=== PATIENT | female | born 1985 | race American Indian/Alaskan Native ===

== ENCOUNTER 2016-11-14 06:43 | Day surgery (SDC) | payer MEDICAID ==
[~2016-11-14 06:43] MED LIST: ANCEF/STERILE WATER 2 GM/20 ML IV NR
[2016-11-14] MEDS ORDERED: DIPRIVAN 10 MG/ML IV ONE (07:24)
[2016-11-14] MEDS ORDERED: DILAUDID ONE (07:24)
[2016-11-14] MEDS ORDERED: XYLOCAINE MPF 2% ONE ×2 (07:24→08:34)
[2016-11-14] MEDS ORDERED: NACL BACTERIOSTATIC INFILTRATI ONE (07:30)
--- NOTE | 2016-11-14 07:38 | Anesthesia Day of Surgery ---
Anesthesia Day of Surgery - Day of Surgery Patient Examined: Yes Patient H&P Reviewed: Yes Patient is NPO: Yes
--- NOTE | 2016-11-14 07:40 | Anesthesia Consultation ---
Anesthesia Consult and Med Hx Date of service: 11/14/16 - Airway Anesthetic Teeth Evaluation: Good ROM Head & Neck: Adequate Mental/Hyoid Distance: Adequate Mallampati Class: Class II Intubation Access Assessment: Probably Good - Pulmonary Exam CTA: Yes - Cardiac Exam Cardiac Exam: RRR - Pre-Operative Health Status ASA Pre-Surgery Classification: ASA2 Proposed Anesthetic Plan: General - Pulmonary Hx Smoking: Yes (4 PER DAY X 10 YRS) Hx Asthma: No Hx Sleep Apnea: No (VINOD PRE SCREEN HIGH RISK) - Cardiovascular System Hx Hypertension: No (on nifedipine during ) - Central Nervous System Hx Psychiatric Problems: No - Gastrointestinal Hx Gastroesophageal Reflux Disease: No - Endocrine Hx Renal Disease: No Hx Liver Disease: No Hx Non-Insulin Dependent Diabetes: No - Hematic Hx Sickle Cell Disease: No - Other Systems Hx Substance Use: Yes (MARIJUANA once on August 2016) Hx Cancer: No Hx Obesity: Yes - Additional Comments Anesthesia Medical History Comments: NAC
[2016-11-14 07:59] LABS: Hematocrit 41.2 % (30.3-42.9); Hemoglobin 13.8 gm/dl (10.1-14.3)
[2016-11-14] MEDS ORDERED: VERSED IV NR (08:15)
[2016-11-14] MEDS ORDERED: LACTATED RINGERS 1,000 ML IV SCH (08:15)
[2016-11-14] MEDS ORDERED: PEPCID IV NR (08:15)
[2016-11-14] MEDS ORDERED: NACL 0.9% IR ONE (08:34)
[2016-11-14] MEDS ORDERED: MARCAINE-EPI 0.5%-1:200,000 INFILTRATI ONE ×2 (08:34)
[2016-11-14] MEDS ORDERED: ZOFRAN ONE (08:57)
[2016-11-14] MEDS: DILAUDID IV PRN ×4 (09:50→10:30)
--- NOTE | 2016-11-14 09:50 | Post Anesthesia Evaluation ---
- Post Anesthesia Evaluation Patient Participated: Yes Airway Patent: Yes Stable Respiratory Function: Yes Nausea/Vomiting: No Temp > 96.8F: Yes Pain Manageable: Yes Adequeate Hydration: Yes Anesthesia Complications: No
[2016-11-14 10:49] VITALS: BP 133/69
--- NOTE | 2016-11-14 11:04 | Operative Report ---
SERVICE: Plastic surgery. PREOPERATIVE DIAGNOSIS: Cicatrix of vagina. POSTOPERATIVE DIAGNOSIS: Cicatrix of vagina. PROCEDURE: Complex scar revision of the vagina, 5 cm. SURGEON: Jagdish Muro MD DESCRIPTION OF PROCEDURE: The patient was brought to the operating room and placed on the table in supine position. Following administration of general anesthesia, the patient was placed into a high lithotomy position. The vagina was prepped with a Betadine solution and draped in the usual sterile manner. Following preoperative markings, an elliptical excision of the scar was performed and sent to pathology as specimen. Hemostasis controlled using the electrocautery. Closure performed using a running 3-0 chromic suture followed by application of Neosporin. The patient tolerated the procedure well and returned to recovery room in stable condition. JOB# [id number] FTW/NTS
== END 2016-11-14 11:44 | disposition home or self-care (01) ==
LOC: OR 06:43
PROVIDERS: ATTEND Plastic Surgery
DX: N89.8 Other specified noninflammatory disorders of vagina (principal); N76.0 Acute vaginitis; L57.0 Actinic keratosis; F12.90 Cannabis use, unspecified, uncomplicated; F17.210 Nicotine dependence, cigarettes, uncomplicated; E66.9 Obesity, unspecified; Z68.41 Body mass index [BMI] 40.0-44.9, adult; Z98.890 Other specified postprocedural states
CPT/HCPCS: 13132; 36415; 81025; 85014; 85018; 88305; J0690; J1170; J2250; J2405; J2704; J7120

== ENCOUNTER 2020-06-21 01:07 | Emergency (ER) | payer MEDICAID ==
[2020-06-21 02:04] VITALS: BP 125/75
[2020-06-21 02:29] LABS: Bacteria,Urine 1+ /HPF (Negative); Bilirubin,Urine NEG (Negative); Blood,Urine LG (Negative); Color,Urine Yellow (Yellow); Mucus,Urine 3+ /HPF; Urobilinogen,Urine < 2.0 mg/dL (<2.0)
[2020-06-21 03:17] LABS: Basophils # (Auto) 0.1 K/mm3 (0.0-0.1); Basophils % (Auto) 0.6 % (0.0-1.8); Eosinophils # (Auto) 0.1 K/mm3 (0.0-0.4); Eosinophils % (Auto) 0.4 % (0.0-4.3); Hematocrit 37.8 % (30.3-42.9); Hemoglobin 12.6 gm/dl (10.1-14.3); Lymphocytes % (Auto) 18.4 % (13.4-35.0); Mean Corpuscular HGB Conc 33 % (30-34); Mean Corpuscular Volume 82 fl (79-97); Monocytes # (Auto) 1.2 K/mm3 (0.0-0.8); Monocytes % (Auto) 7.6 % (0.0-7.3); Platelet Count 219 K/mm3 (140-440)
--- NOTE | 2020-06-21 04:55 | Ultrasound Report ---
EXAMINATION: Obstetrical Ultrasound INDICATION: Vaginal bleeding in early COMPARISON: None FINDINGS: There is a twin living intrauterine . Twin A: [place]-rump length = 0.7 cm = 6 weeks, 4 day(s). heart rate equals 120 bpm Twin B: [place]-rump length = 0.6 cm = 6 weeks, 3 day(s). heart rate equals 118 bpm There are small right adnexal cysts present, the largest of which measures 1.8 cm. The left adnexal region is not well-visualized. No free pelvic fluid is visualized. IMPRESSION: 1. Twin intrauterine with details as above. Signer Name: Maria De Jesus Arita MD Signed: 06/21/2020 4:51 AM Workstation Name: [id number]
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
[2020-06-21] MEDS ORDERED: ACETAMINOPHEN 500 MG TAB PO ONE (06:20)
--- NOTE | 2020-06-22 06:59 | Ultrasound Report ---
Please see obstetrical ultrasound report performed the same day. Signer Name: Maria De Jesus Arita MD Signed: 06/22/2020 6:55 AM Workstation Name: [id number]
--- NOTE | 2020-06-22 07:00 | Ultrasound Report ---
Please see obstetrical ultrasound report performed the same day. Signer Name: Maria De Jesus Arita MD Signed: 06/22/2020 6:55 AM Workstation Name: [id number]
== END 2020-06-21 06:35 | disposition home or self-care (01) ==
LOC: ED 01:07
DX: O20.9 Hemorrhage in early pregnancy, unspecified (principal); O9A.22 Injury, poisoning and certain other consequences of external causes complicating childbirth; S69.82XA Other specified injuries of left wrist, hand and finger(s), initial encounter; O16.1 Unspecified maternal hypertension, first trimester; Z3A.01 Less than 8 weeks gestation of pregnancy; X58.XXXA Exposure to other specified factors, initial encounter; Y93.89 Activity, other specified; Y92.89 Other specified places as the place of occurrence of the external cause; Y99.8 Other external cause status
CPT/HCPCS: 36415; 76801; 76802; 76817; 81001; 84702; 85025; 86900; 86901

== ENCOUNTER 2020-08-12 10:56 | Emergency (ER) | payer MEDICAID ==
[2020-08-12 12:26] LABS: Basophils % (Auto) 0.4 % (0.0-1.8); Eosinophils # (Auto) 0.1 K/mm3 (0.0-0.4); Eosinophils % (Auto) 0.8 % (0.0-4.3); Hematocrit 36.4 % (30.3-42.9); Hemoglobin 12.1 gm/dl (10.1-14.3); Lymphocytes # (Auto) 2.1 K/mm3 (1.2-5.4); Lymphocytes % (Auto) 17.2 % (13.4-35.0); Mean Corpuscular HGB Conc 33 % (30-34); Mean Corpuscular Volume 85 fl (79-97); Monocytes # (Auto) 1.2 K/mm3 (0.0-0.8); Monocytes % (Auto) 9.5 % (0.0-7.3); Platelet Count 180 K/mm3 (140-440); Red Blood Count 4.27 M/mm3 (3.65-5.03); Red Cell Distribution Width 16.6 % (13.2-15.2)
[2020-08-12] MEDS ORDERED: PROMETHAZINE 25 MG TAB PO ONE (14:19)
[2020-08-12] MEDS ORDERED: ACETAMINOPHEN 325 MG TAB PO ONE (14:19)
--- NOTE | 2020-08-12 14:38 | Emergency Department Report ---
ED General Adult HPI - General Chief complaint: Abdominal Pain Stated complaint: 15 WKS /BLEEDING Time Seen by Provider: 08/12/20 14:09 Source: patient Mode of arrival: Ambulatory Limitations: No Limitations - History of Present Illness Initial comments: Patient is a 35-year-old female presents emergency room with complaints of vaginal spotting that began this morning. She denies any heavy bleeding or passing clots. She states that she has been having left lower back pain for the last couple of days. She denies any abdominal pain, vaginal discharge, vaginal irritation, vomiting, diarrhea, fever. She states that she is currently 15 week s with twins. She states that she went to her OB doctor today Dr. Padgett at [facility] and states that she had blood present in her urine and they wanted her to be evaluated in the emergency department. She states that they were concerned that she might have a kidney stone per patient. She denies ever having this in the past. /P:3/A:12. no PMHx. no allergies to meds. - Related Data Home Medications Medication Instructions Recorded Confirmed Last Taken No Known Home Medications [No 03/26/14 11/07/16 Unknown Reported Home Medications] Allergies Allergy/AdvReac Type Severity Reaction Status Date / Time No Known Allergies Allergy Verified 11/07/16 14:03 ED Review of Systems ROS: Stated complaint: 15 WKS /BLEEDING Other details as noted in HPI Comment: All other systems reviewed and negative ED Past Medical Hx - Past Medical History Hx Hypertension: Yes (on nifedipine during ) Hx Liver Disease: No Hx Renal Disease: No Hx Sickle Cell Disease: No Hx Asthma: No - Surgical History Additional Surgical History: c section, vaginal cerclage - Social History Smoking Status: Never Smoker - Medications Home Medications: Home Medications Medication Instructions Recorded Confirmed Last Taken Type No Known Home Medications [No 03/26/14 11/07/16 Unknown History Reported Home Medications] ED Physical Exam - General Limitations: No Limitations General appearance: alert, in no apparent distress - Head Head exam: Present: atraumatic, normocephalic - Eye Eye exam: Present: normal appearance - ENT ENT exam: Present: mucous membranes moist - Respiratory Respiratory exam: Present: normal lung sounds bilaterally. Absent: respiratory distress, wheezes, rales, rhonchi, stridor, chest wall tenderness, accessory muscle use, decreased breath sounds, prolonged expiratory - Cardiovascular Cardiovascular Exam: Present: regular rate, normal rhythm, normal heart sounds. Absent: systolic murmur, diastolic murmur, rubs, gallop - Back Exam Back exam: Present: normal inspection, full ROM, CVA tenderness (L) (mild), paraspinal tenderness (mild left lumbar paraspinal muscular ttp, no midline C- spine, T-spine or L-spine ttp, no step offs, no deformities). Absent: CVA tenderness (R), vertebral tenderness - Neurological Exam Neurological exam: Present: alert, oriented X3, CN II-XII intact, normal gait. Absent: motor sensory deficit - Psychiatric Psychiatric exam: Present: normal affect, normal mood - Skin Skin exam: Present: warm, dry, intact ED Course Vital Signs 08/12/20 08/12/20 11:20 16:50 Temperature 98.3 F Pulse Rate 95 H 84 Respiratory 20 18 Rate Blood Pressure 125/68 131/72 [Left] O2 Sat by Pulse 98 97 Oximetry ED Medical Decision Making - Lab Data Result diagrams: 08/12/20 11:24 08/12/20 14:32 Lab Results 08/12/20 08/12/20 08/12/20 Range/Units 11:24 11:24 14:32 WBC 12.1 H (4.5-11.0) K/mm3 RBC 4.27 (3.65-5.03) M/mm3 Hgb 12.1 (10.1-14.3) gm/dl Hct 36.4 (30.3-42.9) % MCV 85 (79-97) fl MCH 28 (28-32) pg MCHC 33 (30-34) % RDW 16.6 H (13.2-15.2) % Plt Count 180 (140-440) K/mm3 Lymph % (Auto) 17.2 (13.4-35.0) % [place] % (Auto) 9.5 H (0.0-7.3) % Eos % (Auto) 0.8 (0.0-4.3) % Baso % (Auto) 0.4 (0.0-1.8) % Lymph # (Auto) 2.1 (1.2-5.4) K/mm3 [place]les # (Auto) 1.2 H (0.0-0.8) K/mm3 Eos # (Auto) 0.1 (0.0-0.4) K/mm3 Baso # (Auto) 0.0 (0.0-0.1) K/mm3 Seg Neutrophils % 72.1 H (40.0-70.0) % Seg Neutrophils # 8.8 H (1.8-7.7) K/mm3 Sodium 134 L (137-145) mmol/L Potassium 4.1 (3.6-5.0) mmol/L Chloride 100.8 (98-107) mmol/L Carbon Dioxide 17 L (22-30) mmol/L Anion Gap 20 mmol/L BUN 7 (7-17) mg/dL Creatinine 0.4 L (0.6-1.2) mg/dL Estimated GFR > 60 ml/min BUN/Creatinine Ratio 18 % Glucose 82 (65-100) mg/dL Calcium 9.2 (8.4-10.2) mg/dL Total Bilirubin < 0.20 (0.1-1.2) mg/dL AST 17 (5-40) units/L ALT 11 (7-56) units/L Alkaline Phosphatase 68 (35-129) units/L Total Protein 6.7 (6.3-8.2) g/dL Albumin 3.7 L (3.9-5) g/dL Albumin/Globulin Ratio 1.2 % HCG, Quant [id number] H (0-4) mIU/mL Urine Color (Yellow) Urine Turbidity (Clear) Urine pH (5.0-7.0) Ur Specific [place] (1.003-1.030) Urine Protein (Negative) mg/dL Urine Glucose (UA) (Negative) mg/dL Urine Ketones (Negative) mg/dL Urine Blood (Negative) Urine Nitrite (Negative) Urine Bilirubin (Negative) Urine Urobilinogen (<2.0) mg/dL Ur Leukocyte Esterase (Negative) Urine WBC (Auto) (0.0-6.0) /HPF Urine RBC (Auto) (0.0-6.0) /HPF U Epithel Cells (Auto) (0-13.0) /HPF Urine Bacteria (Auto) (Negative) /HPF Urine Mucus /HPF 10/14/20 Range/Units 14:40 WBC (4.5-11.0) K/mm3 RBC (3.65-5.03) M/mm3 Hgb (10.1-14.3) gm/dl Hct (30.3-42.9) % MCV (79-97) fl MCH (28-32) pg MCHC (30-34) % RDW (13.2-15.2) % Plt Count (140-440) K/mm3 Lymph % (Auto) (13.4-35.0) % [place] % (Auto) (0.0-7.3) % Eos % (Auto) (0.0-4.3) % Baso % (Auto) (0.0-1.8) % Lymph # (Auto) (1.2-5.4) K/mm3 [place] # (Auto) (0.0-0.8) K/mm3 Eos # (Auto) (0.0-0.4) K/mm3 Baso # (Auto) (0.0-0.1) K/mm3 Seg Neutrophils % (40.0-70.0) % Seg Neutrophils # (1.8-7.7) K/mm3 Sodium (137-145) mmol/L Potassium (3.6-5.0) mmol/L Chloride (98-107) mmol/L Carbon Dioxide (22-30) mmol/L Anion Gap mmol/L BUN (7-17) mg/dL Creatinine (0.6-1.2) mg/dL Estimated GFR ml/min BUN/Creatinine Ratio % Glucose (65-100) mg/dL Calcium (8.4-10.2) mg/dL Total Bilirubin (0.1-1.2) mg/dL AST (5-40) units/L ALT (7-56) units/L Alkaline Phosphatase (35-129) units/L Total Protein (6.3-8.2) g/dL Albumin (3.9-5) g/dL Albumin/Globulin Ratio % HCG, Quant (0-4) mIU/mL Urine Color Yellow (Yellow) Urine Turbidity Slightly-cloudy (Clear) Urine pH 6.0 (5.0-7.0) Ur Specific [place] 1.019 (1.003-1.030) Urine Protein <15 mg/dl (Negative) mg/dL Urine Glucose (UA) Neg (Negative) mg/dL Urine Ketones Neg (Negative) mg/dL Urine Blood Neg (Negative) Urine Nitrite Neg (Negative) Urine Bilirubin Neg (Negative) Urine Urobilinogen < 2.0 (<2.0) mg/dL Ur Leukocyte Esterase Neg (Negative) Urine WBC (Auto) 5.0 (0.0-6.0) /HPF Urine RBC (Auto) 4.0 (0.0-6.0) /HPF U Epithel Cells (Auto) 1.0 (0-13.0) /HPF Urine Bacteria (Auto) 2+ (Negative) /HPF Urine Mucus 1+ /HPF - Radiology Data Radiology results: report reviewed ULTRASOUND RENAL INDICATION / CLINICAL INFORMATION: , back pain. COMPARISON: None available. FINDINGS: RIGHT KIDNEY: Length = 14.3 cm. - Echogenicity: Normal. - Cortical Thickness: Normal. - Hydronephrosis: None. - Cyst or mass: 2.1 cm simple renal cyst. - Stones: None seen. LEFT KIDNEY: Length = 12.1 cm. - Echogenicity: Normal. - Cortical Thickness: Normal. - Hydronephrosis: None. - Cyst or mass: No significant abnormality. - Stones: None seen. URINARY BLADDER: No significant abnormality. FREE FLUID: None. ADDITIONAL FINDINGS: None. IMPRESSION: 1. Small, simple, right renal cyst. Signer Name: Autumn Hernández MD Signed: 08/12/2020 3:50 PM Workstation Name: [id number] Transcribed By: RH Dictated By: AUTUMN HERNÁNDEZ III Electronically Authenticated By: AUTUMN HERNÁNDEZ III Signed Date/Time: 08/12/201549 DD/ 154 TD/TT: ULTRASOUND OBSTETRIC INDICATION / CLINICAL INFORMATION: twin , spotting, left flank pain. Clinical Gestational Age (GA): 14.3 weeks.days TECHNIQUE: Transabdominal. COMPARISON: 06/21/2020 FINDINGS: There is a twin gestation intrauterine . Reported findings are for twin "A". Biparietal Diameter = 2.4 cm = 14.1 weeks.days Head Circumference = 9.5 cm = 14.3 weeks.days Abdominal Circumference = 8.0 cm = 14.3 weeks.days Femur Length = 1.7 cm = 15.1 weeks.days Average Ultrasound Age (AUA) = 14.4 weeks.days Heart Rate: 128 beats per minute. Estimated Weight in grams (if calculated): Not calculated. Estimated Weight Growth Percentile (if calculated): Not calculated. Position: breech. Cervix: closed. Length in cm (if measured): 3.0 cm Placenta: anterior and appears free of the os. Amniotic Fluid Volume: Subjectively normal Amniotic Fluid Index (EVERETTE) in cm (if calculated): Not calculated. Maternal Adnexa: No significant abnormality. IMPRESSION: 1. Twin gestation, above reported findings are for twin "A". Sonographic age of 14.4 weeks.days. Breech presentation. 2. Cervical length at the lower limits of normal. Recommend continued follow-up as warranted. Signer Name: Autumn Hernández MD Signed: 08/12/2020 3:59 PM Workstation Name: [id number] Transcribed By: CHRISTY Dictated By: AUTUMN HERNÁNDEZ III Electronically Authenticated By: AUTUMN HERNÁNDEZ III Signed Date/Time: 08/12/201558 DD/ 55 TD/TT: - Medical Decision Making Patient is a 35-year-old female presents emergency room with complaints of vaginal spotting that began this morning. She denies any heavy bleeding or passing clots. She states that she has been having left lower back pain for the last couple of days. She denies any abdominal pain, vaginal discharge, vaginal irritation, vomiting, diarrhea, fever. She states that she is currently 15 weeks with twins. She states that she went to her OB doctor today Dr. Padgett at [facility] and states that she had blood present in her urine and they wanted her to be evaluated in the emergency department. She states that they were concerned that she might have a kidney stone per patient. She denies ever having this in the past. /P:3/A:12. no PMHx. no allergies to meds. Vitals are normal. On exam:mild left lumbar paraspinal muscular ttp, no midline C-spine, T-spine or L-spine ttp, no step offs, no deformities, mild left CVA tenderness, no focal neuro deficits, no abdominal tenderness on exam. Labs are stable. Patient is Rh+. UA is within normal limits. hCG quant is [id number]. renal US: 1. Small, simple, right renal cyst. US OB: 1. Twin gestation, above reported findings are for twin "A". Sonographic age of 14.4 weeks.days. Breech presentation. 2. Cervical length at the lower limits of normal. Recommend continued follow-up as warranted. Patient given Tylenol and Phenergan while in the emergency department her symptoms improved. Discussed all results with patient and answered questions. Discussed the possibility of threatened miscarriage given spotting during , discussed pelvic rest, discussed close OB monitoring. advised pt May take Tylenol as needed for discomfort. Increase your water intake. Follow-up with your PET W[facility]ER within the next 2 days for reexamination. He will need close OB follow-up. Return to emergency room for any new or worsening symptoms. - Differential Diagnosis UTI,strain, round ligament pain, subchorionic hemorrhage, nephrolitiasis Critical care attestation.: If time is entered above; I have spent that time in minutes in the direct care of this critically ill patient, excluding procedure time. ED Disposition Clinical Impression: Vaginal spotting, Simple renal cyst Low back pain Qualifiers: Chronicity: acute Back pain laterality: left Sciatica presence: without sciatica Qualified Code(s): M54.5 - Low back pain Twin gestation in second trimester Qualifiers: Multiple gestation type: unspecified Qualified Code(s): O30.002 - Twin , unspecified number of placenta and unspecified number of amniotic sacs, second trimester Cervical shortening Qualifiers: Trimester: second trimester Qualified Code(s): O26.872 - Cervical shortening, second trimester Disposition: DC-01 TO HOME OR SELFCARE Is pt being admited?: No Does the pt Need Aspirin: No Condition: Stable Instructions: Threatened Miscarriage (ED), Abdominal Pain in (ED) Additional Instructions: May take Tylenol as needed for discomfort. Increase your water intake. Follow- up with your [facility] within the next 2 days for reexamination. He will need close OB follow-up. Return to emergency room for any new or worsening symptoms. Referrals: PREM ANDRE MD [Primary Care Provider] - 2-3 Days [facility] [Provider Group] - 2-3 Days Time of Disposition: 16:36 Print Language: FRENCH
[2020-08-12 15:11] LABS: Bacteria,Urine 2+ /HPF (Negative); Bilirubin,Urine NEG (Negative); Blood,Urine NEG (Negative); Color,Urine Yellow (Yellow); Mucus,Urine 1+ /HPF; Protein,Urine <15 mg/dL mg/dL (Negative); Urobilinogen,Urine < 2.0 mg/dL (<2.0)
--- NOTE | 2020-08-12 15:55 | Ultrasound Report ---
ULTRASOUND RENAL INDICATION / CLINICAL INFORMATION: , back pain. COMPARISON: None available. FINDINGS: RIGHT KIDNEY: Length = 14.3 cm. - Echogenicity: Normal. - Cortical Thickness: Normal. - Hydronephrosis: None. - Cyst or mass: 2.1 cm simple renal cyst. - Stones: None seen. LEFT KIDNEY: Length = 12.1 cm. - Echogenicity: Normal. - Cortical Thickness: Normal. - Hydronephrosis: None. - Cyst or mass: No significant abnormality. - Stones: None seen. URINARY BLADDER: No significant abnormality. FREE FLUID: None. ADDITIONAL FINDINGS: None. IMPRESSION: 1. Small, simple, right renal cyst. Signer Name: Bao Hernández MD Signed: 08/12/2020 3:50 PM Workstation Name: [id number]
--- NOTE | 2020-08-12 16:01 | Ultrasound Report ---
ULTRASOUND OBSTETRIC INDICATION / CLINICAL INFORMATION: twin , spotting, left flank pain. Clinical Gestational Age (GA): 14.3 weeks.days TECHNIQUE: Transabdominal. COMPARISON: 06/21/2020 FINDINGS: There is a twin gestation intrauterine . Reported findings are for twin "B". Biparietal Diameter = 2.5 cm = 14.2 weeks.days Head Circumference = 10.3 cm = 14.6 weeks.days Abdominal Circumference = 9.3 cm = 15.3 weeks.days Femur Length = 1.4 cm = 14.0 weeks.days Average Ultrasound Age (AUA) = 14.5 weeks.days Heart Rate: 156 beats per minute. Estimated Weight in grams (if calculated): Not calculated. Estimated Weight Growth Percentile (if calculated): Not calculated. Position: breech. Cervix: closed. Length in cm (if measured): 3.0 cm Placenta: posterior and appears free of the os. Amniotic Fluid Volume: Subjectively normal Amniotic Fluid Index (EVERETTE) in cm (if calculated): Not calculated. Maternal Adnexa: No significant abnormality. IMPRESSION: 1. Twin gestation, above reported findings are for twin "B". Sonographic age of 14.5 weeks.days. Gaby ch presentation. 2. Cervical length at the lower limits of normal. Recommend continued follow-up as warranted. Signer Name: Bao Hernández MD Signed: 08/12/2020 3:56 PM Workstation Name: [id number]
--- NOTE | 2020-08-12 16:04 | Ultrasound Report ---
ULTRASOUND OBSTETRIC INDICATION / CLINICAL INFORMATION: twin , spotting, left flank pain. Clinical Gestational Age (GA): 14.3 weeks.days TECHNIQUE: Transabdominal. COMPARISON: 06/21/2020 FINDINGS: There is a twin gestation intrauterine . Reported findings are for twin "A". Biparietal Diameter = 2.4 cm = 14.1 weeks.days Head Circumference = 9.5 cm = 14.3 weeks.days Abdominal Circumference = 8.0 cm = 14.3 weeks.days Femur Length = 1.7 cm = 15.1 weeks.days Average Ultrasound Age (AUA) = 14.4 weeks.days Heart Rate: 128 beats per minute. Estimated Weight in grams (if calculated): Not calculated. Estimated Weight Growth Percentile (if calculated): Not calculated. Position: breech. Cervix: closed. Length in cm (if measured): 3.0 cm Placenta: anterior and appears free of the os. Amniotic Fluid Volume: Subjectively normal Amniotic Fluid Index (EVERETTE) in cm (if calculated): Not calculated. Maternal Adnexa: No significant abnormality. IMPRESSION: 1. Twin gestation, above reported findings are for twin "A". Sonographic age of 14.4 weeks.days. Gaby ch presentation. 2. Cervical length at the lower limits of normal. Recommend continued follow-up as warranted. Signer Name: Bao Hernández MD Signed: 08/12/2020 3:59 PM Workstation Name: [id number]
[2020-08-12 16:07] LABS: Alanine Aminotransferase 11 units/L (7-56); Albumin 3.7 g/dL (3.9-5); Blood Urea Nitrogen 7 mg/dL (7-17); Calcium 9.2 mg/dL (8.4-10.2); Hemolysis Index 18
[2020-08-12 16:08] LABS: BUN/Creatinine Ratio 18
[2020-08-12 18:22] VITALS: BP 131/72
== END 2020-08-12 17:20 | disposition home or self-care (01) ==
LOC: ED 10:56
DX: O30.002 Twin pregnancy, unspecified number of placenta and unspecified number of amniotic sacs, second trimester (principal); O26.872 Cervical shortening, second trimester; O20.8 Other hemorrhage in early pregnancy; O26.892 Other specified pregnancy related conditions, second trimester; N28.1 Cyst of kidney, acquired; M54.5 Low back pain; I10 Essential (primary) hypertension; Z3A.15 15 weeks gestation of pregnancy; Z98.890 Other specified postprocedural states
CPT/HCPCS: 36415; 76770; 76805; 76810; 80053; 81001; 84702; 85025; 99284; Q0169

== ENCOUNTER 2020-10-07 14:13 | Outpatient (CLI) | payer MEDICAID ==
[2020-10-07] MEDS ORDERED: LACTATED RINGERS 500 ML IV ONE (15:59)
--- NOTE | 2020-10-07 17:05 | Ultrasound Report ---
LIMITED OBSTETRICAL ULTRASOUND WITH BIOPHYSICAL PROFILE HISTORY: Limited movement. COMPARISON: 08/12/2020. FINDINGS: 1. Intrauterine gestations are present. heart tones for twin A are 160 bpm. heart tones f or twin B is 151 bpm. Cervix is closed measuring 4.4 cm. position for twin A is cephalic. position for twin B is breech. The placenta for twin A i s posteriorly located and low-lying. The placenta for twin B is anteriorly located and free of the os . Evaluation of amniotic fluid demonstrates the largest vertical pocket of 3.5 cm for twin A and 4.7 cm for twin B. Biophysical profile is normal at 8/8. IMPRESSION: 1. Viable twin intrauterine pregnancies. 2. Biophysical profile is normal at 8/8. 3. Breech position for twin B. 4. Twin A has low-lying placenta. Signer Name: Severino Vo MD Signed: 10/07/2020 5:01 PM Workstation Name: [id number]
--- NOTE | 2020-10-07 18:00 | Ultrasound Report ---
US OB BPP wo non-stress INDICATION / CLINICAL INFORMATION: FWB. COMPARISON: None available. FINDINGS: BPP is 6/8. There was absent or no breathing movements by the fetus IMPRESSION: BPP is 6/8 with no breathing movements seen by the fetus Signer Name: Philip Patterson MD FACR Signed: 10/07/2020 5:56 PM Workstation Name: [id number]
== END 2020-10-07 16:55 | disposition home or self-care (01) ==
LOC: TRG 14:13 → APU 14:14 → TRG 16:55
PROVIDERS: ATTEND Obstetrics & Gynecology
DX: O36.8120 Decreased fetal movements, second trimester, not applicable or unspecified (principal); Z3A.22 22 weeks gestation of pregnancy
CPT/HCPCS: 76815; 76819

== ENCOUNTER 2020-11-01 00:37 | Outpatient (CLI) | payer MEDICAID ==
[2020-11-01 01:35] VITALS: BP 141/67
[2020-11-01] MEDS ORDERED: LACTATED RINGERS 1,000 ML IV ONE (01:40)
[2020-11-01 02:13] LABS: Bacteria,Urine 3+ /HPF (Negative); Bilirubin,Urine NEG (Negative); Blood,Urine NEG (Negative); Calcium Oxalate Crystals,Urine 1+; Color,Urine Yellow (Yellow); Mucus,Urine FEW /HPF
== END 2020-11-01 02:45 | disposition home or self-care (01) ==
LOC: TRG 00:37 → APU 00:38 → TRG 02:45
PROVIDERS: ATTEND Obstetrics & Gynecology
DX: O47.02 False labor before 37 completed weeks of gestation, second trimester (principal); Z3A.26 26 weeks gestation of pregnancy
CPT/HCPCS: 59025; 81001; 87086

== ENCOUNTER 2020-12-03 13:13 | Outpatient (CLI) | payer MEDICAID ==
[2020-12-03] MEDS ORDERED: LACTATED RINGERS 1,000 ML IV SCH (13:45)
[2020-12-03 14:26] LABS: Bacteria,Urine 3+ /HPF (Negative); Bilirubin,Urine NEG (Negative); Blood,Urine NEG (Negative); Color,Urine Yellow (Yellow); Hyaline Casts,Urine 1 /LPF; Mucus,Urine FEW /HPF; Urobilinogen,Urine < 2.0 mg/dL (<2.0)
[2020-12-03 14:35] VITALS: BP 133/79
[2020-12-03] MEDS ORDERED: LACTATED RINGERS 500 ML IV ONE (14:48)
[2020-12-03] MEDS ORDERED: TERBUTALINE 1 MG/1 ML INJ SUB-Q SCH (15:00)
--- NOTE | 2020-12-03 15:40 | Ultrasound Report ---
ULTRASOUND OBSTETRIC LIMITED ULTRASOUND BIOPHYSICAL PROFILE INDICATION / CLINICAL INFORMATION: well being. Clinical Gestational Age (GA): 30 weeks. 4 days COMPARISON: None available. FINDINGS: Twin intrauterine gestation. Baby A: BREATHING MOVEMENT = 2 GROSS BODY MOVEMENT = 2 TONE = 2 QUALITATIVE AMNIOTIC FLUID VOLUME = 2 TOTAL BIOPHYSICAL SCORE = 8/8 HEART RATE (beats per minute): 167 PRESENTATION: Breech Baby B: BREATHING MOVEMENT = 2 GROSS BODY MOVEMENT = 2 TONE = 2 QUALITATIVE AMNIOTIC FLUID VOLUME = 2 TOTAL BIOPHYSICAL SCORE = 8/8 HEART RATE (beats per minute): 173 PRESENTATION: Cephalic ADDITIONAL FINDINGS: None. IMPRESSION: 1. Biophysical Score for baby A = 8/8 2. Biophysical Score for baby B = 8/8 Signer Name: Saji Churchill MD Signed: 12/03/2020 3:35 PM Workstation Name: [id number]
--- NOTE | 2020-12-03 15:41 | Ultrasound Report ---
ULTRASOUND OBSTETRIC LIMITED ULTRASOUND BIOPHYSICAL PROFILE INDICATION / CLINICAL INFORMATION: well being. Clinical Gestational Age (GA): 30 weeks. 4 days COMPARISON: None available. FINDINGS: Twin intrauterine gestation. Baby A: BREATHING MOVEMENT = 2 GROSS BODY MOVEMENT = 2 TONE = 2 QUALITATIVE AMNIOTIC FLUID VOLUME = 2 TOTAL BIOPHYSICAL SCORE = 8/8 HEART RATE (beats per minute): 167 PRESENTATION: Breech Baby B: BREATHING MOVEMENT = 2 GROSS BODY MOVEMENT = 2 TONE = 2 QUALITATIVE AMNIOTIC FLUID VOLUME = 2 TOTAL BIOPHYSICAL SCORE = 8/8 HEART RATE (beats per minute): 173 PRESENTATION: Cephalic ADDITIONAL FINDINGS: None. IMPRESSION: 1. Biophysical Score for baby A = 8/8 2. Biophysical Score for baby B = 8/8 Signer Name: Saji Churchill MD Signed: 12/03/2020 3:37 PM Workstation Name: [id number]
== END 2020-12-03 17:30 | disposition home or self-care (01) ==
LOC: TRG 13:13 → APU 13:14 → TRG 17:30
PROVIDERS: ATTEND Obstetrics & Gynecology
DX: O62.9 Abnormality of forces of labor, unspecified (principal); Z3A.30 30 weeks gestation of pregnancy
CPT/HCPCS: 59025; 76819; 81001; 96360

== ENCOUNTER 2021-01-19 07:30 | Inpatient (IN) | payer MEDICAID ==
[2021-01-21] MEDS ORDERED: BICITRA ORAL LIQD 30ML PO ONE (09:46)
[2021-01-21] MEDS ORDERED: FAMOTIDINE 20 MG/2 ML INJ IV ONE (09:46)
[2021-01-21] MEDS ORDERED: METOCLOPRAMIDE 10 MG/2 ML INJ IV ONE (09:46)
[2021-01-21] MEDS ORDERED: SODIUM CHLORIDE 0.9% 500 ML 500 ML IV NR (09:57)
--- NOTE | 2021-01-21 09:57 | History and Physical Report ---
History of Present Illness Date of examination: 01/21/21 Date of admission: 01/21/21 09:40 Past History - Obstetrical History : 17 Medications and Allergies Allergies Allergy/AdvReac Type Severity Reaction Status Date / Time No Known Allergies Allergy Verified 11/07/16 14:03 Home Medications Medication Instructions Recorded Confirmed Last Taken Type Zoloft 1 tab PO DAILY 01/21/21 01/21/21 3 Days Ago History ~01/18/21 - Vital Signs Vital signs: Vital Signs Pulse Ox 97 01/21/21 09:48 Temp Pulse Resp BP Pulse Ox 112 H 157/87 98 01/21/21 09:53 01/21/21 09:49 01/21/21 09:53 Results All other labs normal.
[2021-01-21] MEDS ORDERED: ceFAZolin/Water 2 GM/20 ML 2 GM/20 ML SYRINGE IV NR (10:00)
[2021-01-21] MEDS ORDERED: OXYTOCIN DRIP 30 UNITS/500 ML BAG IV SCH (10:00)
[2021-01-21] MEDS ORDERED: LACTATED RINGERS 1,000 ML IV SCH (10:00)
[2021-01-21 11:06] LABS: Hemoglobin 13.1 gm/dl (10.1-14.3); Mean Corpuscular HGB Conc 33 % (30-34); Mean Corpuscular Volume 88 fl (79-97); Red Blood Count 4.55 M/mm3 (3.65-5.03); Red Cell Distribution Width 15.1 % (13.2-15.2)
[2021-01-21 11:14] LABS: Platelet Count 72 K/mm3 (140-440)
[2021-01-21] MEDS ORDERED: ePHEDrine SULFATE 50 MG/1 ML INJ IV PRN (12:00)
[2021-01-21] MEDS ORDERED: LIDOCAINE (2%) 20 MG/1 ML VIAL 20 ML MDV INFILTRATI SCH (12:00)
[2021-01-21] MEDS ORDERED: MINERAL OIL 30 ML ORAL LIQD PO PRN (12:00)
--- NOTE | 2021-01-21 13:23 | History and Physical Report ---
History of Present Illness Date of examination: 01/21/21 Date of admission: 01/21/21 09:40 Chief complaint: Thrombocytopenia History of present illness: 35-year-old -1-0-3 at 37-4/7 weeks by LMP with ANNE-MARIE 02/07/2021 who presented today for elective repeat section for twin gestation in breech presentation and was noted to have thrombocytopenia to a platelet level of 72,000. Her antepartum platelet level was 230. She admits to taking low-dose aspirin for the duration of her with the last dose taken at 11:00 PM 01/20/2021. Given that this is an elective procedure with a high risk for hemorrhage the plan is to admit the patient for 4 doses of Decadron and repeat platelet level in 48 hours. We will also discontinue low-dose aspirin. At the time of admission, the patient had no complaints she admits to good movement, denies contractions, denies loss of fluid and vaginal bleeding. She is a patient of [facility] [employer]: First visit at 6-5/7 weeks, last visit at 36-2/7 weeks. Total number of visits= 17. 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 History of placenta previa which is resolved Past History Past Medical History: other (depression) Past Surgical History: section Social history: - Obstetrical History : 17 Medications and Allergies Allergies Allergy/AdvReac Type Severity Reaction Status Date / Time No Known Allergies Allergy Verified 11/07/16 14:03 Home Medications Medication Instructions Recorded Confirmed Last Taken Type Aspirin 81 mg PO DAILY 01/21/21 01/21/21 01/20/21 History Colace CAP 100 mg PO DAILY 01/21/21 01/21/21 01/20/21 History Multivitamin Tablet 1 tab PO DAILY 01/21/21 01/21/21 01/20/21 History Tylenol 1,000 mg PO DAILY 01/21/21 01/21/21 01/20/21 History Zoloft 1 tab PO DAILY 01/21/21 01/21/21 3 Days Ago History ~01/18/21 diphenhydrAMINE [Benadryl CAP] 75 mg PO DAILY 01/21/21 01/21/21 01/20/21 History Active Meds: Active Medications Butorphanol Tartrate (Butorphanol 2 Mg/1 Ml Inj) 1 mg IV Q2H PRN PRN Reason: Pain, Moderate(4-6) LABOR PAIN Ephedrine Sulfate (Ephedrine Sulfate 50 Mg/1 Ml Inj) 10 mg IV Q2M PRN PRN Reason: Hypotension Lactated Ringer's (Lactated Ringers) 1,000 mls @ 2,250 mls/hr IV PREOP CELIA Stop: 01/22/21 10:27 Oxytocin/Sodium Chloride (Pitocin/Ns 30 Unit/500ml) 30 units in 500 mls @ 0 mls/hr IV TITR CELIA; Protocol Cefazolin Sodium (Ancef/Sterile Water 2 Gm/20 Ml) 2 gm in 20 mls @ 80 mls/hr IV PREOP NR; Protocol Stop: 01/21/21 23:59 Sodium Chloride (Nacl 0.9% 500 Ml) 500 mls @ 0 mls/hr IV ONCE NR Stop: 01/21/21 23:59 Lactated Ringer's (Lactated Ringers) 1,000 mls @ 125 mls/hr IV DIRECT CELIA Dexamethasone 20 mg/ Sodium (Chloride) 55 mls @ 100 mls/hr IV Q12HR CELIA Stop: 01/23/21 10:32 Lidocaine (Lidocaine (2%) 20 Mg/1 Ml Vial 20 Ml Mdv) 20 ml INFILTRATI ONCE CELIA Stop: 01/22/21 11:59 Mineral Oil (Mineral Oil 30 Ml Oral Liqd) 30 ml PO QHS PRN PRN Reason: Constipation Review of Systems All systems: negative (no OB compaints) - Vital Signs Vital signs: Vital Signs Pulse Ox 97 01/21/21 09:48 Temp Pulse Resp BP Pulse Ox 27 L 126/77 88 01/21/21 11:29 01/21/21 10:21 01/21/21 11:29 - Physical Exam Breasts: Positive: deferred Cardiovascular: Other (mild tachycardia) Abdomen: Positive: normal appearance, soft, normal bowel sounds Extremities: Positive: normal Deep Tendon Reflex Grade: Normal +2 Results Result Diagrams: 01/21/21 Unknown Abnormal lab results 01/21/21 Range/Units Unknown Plt Count 72 L (140-440) K/mm3 All other labs normal. Assessment and Plan Twin at 37-4/7-week Thrombocytopenia Plan for Decadron 20 mg IV x4 doses with repeat CBC in 48 hours NST every shift Regular diet Discontinue low-dose aspirin Delivery for any acute maternal indication otherwise reschedule section for next week Patient acknowledges plan of care Maddy Padgett MD
[2021-01-21 14:59] LABS: INR 1.13 (0.87-1.13)
[2021-01-21 15:00] LABS: Partial Thromboplastin Time 29.3 Sec. (24.2-36.6)
[2021-01-21 15:09] LABS: Alanine Aminotransferase 13 units/L (7-56); Uric Acid 6.6 mg/dL (3.5-7.6)
[2021-01-21] MEDS: dexAMETHasone 20 MG in SODIUM CHLORIDE 0.9% 50 ML IV SCH (18:00)
[2021-01-21] MEDS: LACTATED RINGERS 1,000 ML IV SCH (18:00)
[2021-01-22] MEDS: BUTORPHANOL 2 MG/1 ML INJ IV PRN ×2 (03:58→07:56)
[2021-01-22] MEDS: dexAMETHasone 20 MG in SODIUM CHLORIDE 0.9% 50 ML IV SCH ×2 (06:26→18:32)
--- NOTE | 2021-01-22 16:29 | Progress Note ---
Assessment and Plan term IUP with twin gestation and thrombocytopenia, h/o c/section x2 not in labor 1. Continue steroid decadron tx started by Dr. Padgett to complete course by and repeat cbc at that time 2. Continuous FHR x2 monitoring 3. Will deliver if distress or maternal complications 4. Discussed contraception and pt undecided for permanent sterilization at this time All questions encouraged and answered Subjective Date of service: 01/22/21 Principal diagnosis: Thrombocytopenia, twin gest at 37.5wks Interval history: pt admits to movement x2, pt ambulates to restroom without difficulty. Denies headache, leakage of fluid, vag bleeding or feeling ctx. Objective - Constitutional Vitals: Vital Signs - 12hr 01/22/21 01/22/21 01/22/21 04:58 10:20 10:22 Temperature 98.2 F Pulse Rate 103 H 103 H Respiratory 18 18 Rate Blood Pressure 133/74 Blood Pressure 133/74 [Right] General appearance: Present: no acute distress - Neck Neck: normal ROM - Respiratory Respiratory effort: normal - Breasts Breasts: deferred Extremities: no ischemia, No edema - Gastrointestinal General gastrointestinal: Present: non-tender Rectal Exam: deferred - Genitourinary Female genitourinary: deferred, other (Uterus non-tender, FHR x2 with category I tracing and pt acontractile) - Musculoskeletal Musculoskeletal: strength equal bilaterally - Neurologic Neurologic: CNII-XII intact - Psychiatric Psychiatric: cooperative - Labs CBC & Chem 7: 01/21/21 Unknown 01/21/21 13:33 Labs: Abnormal lab results 01/22/21 Range/Units 14:47 POC Glucose 122 H (70-105) mg/dL Medications & Allergies - Medications Allergies/Adverse Reactions: Allergies No Known Allergies Allergy (Verified 11/07/16 14:03) Home Medications: Home Medications Medication Instructions Recorded Confirmed Last Taken Type Aspirin 81 mg PO DAILY 01/21/21 01/21/21 01/20/21 History Colace CAP 100 mg PO DAILY 01/21/21 01/21/21 01/20/21 History Multivitamin Tablet 1 tab PO DAILY 01/21/21 01/21/21 01/20/21 History Tylenol 1,000 mg PO DAILY 01/21/21 01/21/21 01/20/21 History Zoloft 1 tab PO DAILY 01/21/21 01/21/21 3 Days Ago History ~01/18/21 diphenhydrAMINE [Benadryl CAP] 75 mg PO DAILY 01/21/21 01/21/21 01/20/21 History Active Medications: Generic Name Dose Route Start Last Admin Trade Name Freq PRN Reason Stop Dose Admin Butorphanol Tartrate 1 mg 01/21/21 12:00 01/22/21 07:56 Butorphanol 2 Mg/1 Ml Inj IV 1 mg Q2H PRN Administration Pain, Moderate(4-6) LABOR PAIN Ephedrine Sulfate 10 mg 01/21/21 12:00 Ephedrine Sulfate 50 Mg/1 Ml Inj IV Q2M PRN Hypotension Oxytocin/Sodium Chloride 30 units in 500 mls @ 0 mls/hr 01/21/21 10:00 Pitocin/Ns 30 Unit/500ml IV TITR CELIA Protocol As Directed Lactated Ringer's 1,000 mls @ 125 mls/hr 01/21/21 12:00 01/21/21 18:00 Lactated Ringers IV 125 mls/hr DIRECT CELIA Administration Dexamethasone 20 mg/ Sodium 55 mls @ 100 mls/hr 01/21/21 14:30 01/22/21 06:26 Chloride IV 01/23/21 03:02 100 mls/hr Q12H CELIA Administration Mineral Oil 30 ml 01/21/21 12:00 Mineral Oil 30 Ml Oral Liqd PO QHS PRN Constipation
[2021-01-22] MEDS: LACTATED RINGERS 1,000 ML IV SCH (21:22)
[2021-01-22] MEDS ORDERED: ACETAMINOPHEN 500 MG TAB PO PRN (21:38)
[2021-01-22] MEDS ORDERED: diphenhydrAMINE 25 MG CAP PO ONE (22:00)
[2021-01-22] MEDS ORDERED: diphenhydrAMINE 50 MG CAP PO ONE (22:13)
[2021-01-23] MEDS ORDERED: ACETAMINOPHEN 500 MG TAB ONE (03:29)
[2021-01-23] MEDS: dexAMETHasone 20 MG in SODIUM CHLORIDE 0.9% 50 ML IV SCH (06:50)
[2021-01-23] MEDS: LACTATED RINGERS 1,000 ML IV SCH (06:50)
--- NOTE | 2021-01-23 07:49 | Progress Note ---
Assessment and Plan TIUP at 37.6wks with thrombocytopenia, receiving steroid treatment 1. repeat CBC on 01/24/21 2. Pt to discuss permanent sterilization and records to re-evaluated at the time of her repeat c/section 3. Labor precaution given all questions encouraged and answered Subjective Date of service: 01/23/21 Principal diagnosis: Thrombocytopenia, twin gest at 37.5wks Interval history: pt rested better overnight with benadryl and pt kept SCDs on legs without a problem. pt admits to movement x2, denies feeling ctx and now pt wants to have permanent sterilization. Denies leakage of fluid or vaginal bleeding. Objective - Constitutional Vitals: Vital Signs - 12hr 01/22/21 01/23/21 23:31 02:00 Temperature 98.2 F Pulse Rate 120 H Respiratory 16 Rate Blood Pressure 146/77 General appearance: Present: no acute distress - Breasts Breasts: deferred - Cardiovascular Rhythm: regular Extremities: no ischemia - Gastrointestinal General gastrointestinal: Present: soft, non-tender - Genitourinary Female genitourinary: other (External FHR monitoring x2 intermittent and normal. no contractions) - Psychiatric Psychiatric: cooperative - Labs CBC & Chem 7: 01/21/21 Unknown 01/21/21 13:33 Labs: Abnormal lab results 01/22/21 Range/Units 14:47 POC Glucose 122 H (70-105) mg/dL Medications & Allergies - Medications Allergies/Adverse Reactions: Allergies No Known Allergies Allergy (Verified 11/07/16 14:03) Home Medications: Home Medications Medication Instructions Recorded Confirmed Last Taken Type Aspirin 81 mg PO DAILY 01/21/21 01/21/21 01/20/21 History Colace CAP 100 mg PO DAILY 01/21/21 01/21/21 01/20/21 History Multivitamin Tablet 1 tab PO DAILY 01/21/21 01/21/21 01/20/21 History Tylenol 1,000 mg PO DAILY 01/21/21 01/21/21 01/20/21 History Zoloft 1 tab PO DAILY 01/21/21 01/21/21 3 Days Ago History ~01/18/21 diphenhydrAMINE [Benadryl CAP] 75 mg PO DAILY 01/21/21 01/21/21 01/20/21 History Active Medications: Generic Name Dose Route Start Last Admin Trade Name Freq PRN Reason Stop Dose Admin Acetaminophen 1,000 mg 01/22/21 21:38 Acetaminophen 500 Mg Tab PO Q6H PRN Pain, Mild (1-3) Butorphanol Tartrate 1 mg 01/21/21 12:00 01/22/21 07:56 Butorphanol 2 Mg/1 Ml Inj IV 1 mg Q2H PRN Administration Pain, Moderate(4-6) LABOR PAIN Diphenhydramine HCl 50 mg 01/22/21 22:00 Diphenhydramine 25 Mg Cap PO 01/22/21 22:01 ONCE ONE Ephedrine Sulfate 10 mg 01/21/21 12:00 Ephedrine Sulfate 50 Mg/1 Ml Inj IV Q2M PRN Hypotension Oxytocin/Sodium Chloride 30 units in 500 mls @ 0 mls/hr 01/21/21 10:00 Pitocin/Ns 30 Unit/500ml IV TITR CELIA Protocol As Directed Lactated Ringer's 1,000 mls @ 125 mls/hr 01/21/21 12:00 01/23/21 06:50 Lactated Ringers IV 125 mls/hr DIRECT CELIA Administration Mineral Oil 30 ml 01/21/21 12:00 Mineral Oil 30 Ml Oral Liqd PO QHS PRN Constipation Sertraline HCl 25 mg 01/23/21 22:00 Sertraline 25 Mg Tab PO QDAY CELIA
[2021-01-23 08:04] VITALS: BP 122/58
--- NOTE | 2021-01-23 09:04 | Discharge Summary ---
Providers - Providers Date of Admission: 01/21/21 09:40 Date of discharge: 01/23/21 Attending physician: CARLEE GRADY MD Primary care physician: CARLEE GRADY MD Hospitalization Reason for admission: other (thrombocytopenia) Hospital course: received decadron 20mg ivx4 doses dc to home in stable condition ercs scheduled for next week maternal wellbeing reassuring overall cSolis grady md Condition at discharge: Stable Disposition: DC-01 TO HOME OR SELFCARE Plan - Provider Discharge Summary Additional instructions: [] Smoking cessation referral if applicable(refer to patient education folder for contact #) [] Refer to [facility]'s [facility] Booklet Call your doctor immediately for: * Fever > 100.5 * Heavy vaginal bleeding ( >1 pad per hour) * Severe persistent headache * Shortness of breath * Reddened, hot, painful area to leg or breast * Drainage or odor from incision. * Keep incision clean and dry at all times and follow doctor's instructions regarding bathing/showering - Follow up plan Follow up: CARLEE GRADY MD [Primary Care Provider] - 7 Days
[2021-01-23] MEDS ORDERED: SERTRALINE 25 MG TAB PO SCH (22:00)
[2021-01-25] MEDS ORDERED: SODIUM CHLORIDE 0.9% IRR 1,500 ML BOTTLE IR ONE (09:55)
[2021-01-25] MEDS ORDERED: WATER FOR IRRIG STERILE 1,500 ML BOTTLE IR ONE (09:55)
[2021-01-25] MEDS ORDERED: ceFAZolin/STERILE WATER 2 GM/20 ML SYRINGE IV ONE (10:18)
== END 2021-01-23 12:10 | disposition home or self-care (01) | DRG 781 ==
LOC: APU 01-21 09:40 → LD 01-21 09:41
PROVIDERS: ADMIT Obstetrics & Gynecology; ATTEND Obstetrics & Gynecology
DX: O99.113 Other diseases of the blood and blood-forming organs and certain disorders involving the immune mechanism complicating pregnancy, third trimester (principal); O99.343 Other mental disorders complicating pregnancy, third trimester; O30.043 Twin pregnancy, dichorionic/diamniotic, third trimester; F41.8 Other specified anxiety disorders; O32.1XX0 Maternal care for breech presentation, not applicable or unspecified; D69.6 Thrombocytopenia, unspecified; Z20.822 Contact with and (suspected) exposure to COVID-19; Z3A.37 37 weeks gestation of pregnancy
CPT/HCPCS: 36415; 82565; 82962; 83615; 84450; 84460; 84550; 85025; 85384; 85610; 85730; 86850; 86900; 86901; 86920; G0378; J0595; J1100; J7120; U0003